=== PATIENT | female | born 1945 | race Caucasian/White ===

== ENCOUNTER 2018-03-28 06:52 | Day surgery (SDC) | payer MEDICARE, OTHER ==
[2018-03-28] VITALS (7 sets, daily range): BP systolic 101–131; BP diastolic 47–87
[~2018-03-28] VITALS: Ht 165.1 cm; Wt 105.7 kg
[~2018-03-28 06:52] MED LIST: ATOR10TA69 PO; GABA300S PO; LEVO100 PO; METO-408 PO; SERT100T12 PO; SODIUM CHLORIDE 0.9% 1000ML 1,000 ML IV ONE
[2018-03-28] MEDS ORDERED: IRON (08:54)
[2018-03-28] MEDS ORDERED: SERT100T12 PO (08:54)
[2018-03-28] MEDS ORDERED: MULT-1192 PO (08:54)
[2018-03-28] MEDS ORDERED: CHOL200074 PO (08:54)
[2018-03-28] MEDS ORDERED: CALC1TAB15 PO (08:54)
[2018-03-28] MEDS ORDERED: PROPOFOL 10 MG/ML 20ML VIAL IV ONE ×4 (10:55→10:56)
== END 2018-03-28 12:35 | disposition home or self-care (01) ==
LOC: ENDO 06:52 → DAH 06:52 → ENDO 12:35
PROVIDERS: ATTEND Internal Medicine Gastroenterology
DX: D12.3 Benign neoplasm of transverse colon (principal); D12.0 Benign neoplasm of cecum; D50.9 Iron deficiency anemia, unspecified; K29.50 Unspecified chronic gastritis without bleeding; K31.9 Disease of stomach and duodenum, unspecified; I10 Essential (primary) hypertension; E11.9 Type 2 diabetes mellitus without complications; I25.10 Atherosclerotic heart disease of native coronary artery without angina pectoris; E03.9 Hypothyroidism, unspecified; M19.90 Unspecified osteoarthritis, unspecified site; E78.5 Hyperlipidemia, unspecified; Z95.1 Presence of aortocoronary bypass graft; Z98.49 Cataract extraction status, unspecified eye; Z98.84 Bariatric surgery status; Z79.899 Other long term (current) drug therapy; Z87.891 Personal history of nicotine dependence; Z68.41 Body mass index [BMI] 40.0-44.9, adult
CPT/HCPCS: 43239; 45380; 45381; 45385; 82948 ×3; 88305; 93005; A4606; J2704 ×4; J7030; 45384

== ENCOUNTER 2018-03-28 19:41 | Inpatient (IN) | payer MEDICARE, OTHER ==
[~2018-03-28] VITALS: Ht 162.6 cm; Wt 107.7 kg
[~2018-03-28 19:41] MED LIST changes: +CALC1TAB15 PO; +CHOL200074 PO; +IRON; +MULT-1192 PO; -SODIUM CHLORIDE 0.9% 1000ML 1,000 ML IV ONE
[2018-03-28 20:39] LABS: BASOPHILS % (AUTO) 0.4 % (0.0-5.0); EOSINOPHILS % (AUTO) 0.7 % (0.0-8.0); HEMATOCRIT 27.9 % (36-48); LYMPHOCYTES % (AUTO) 10.2 % (21.0-51.0); MEAN CORPUSCULAR HEMOGLOBIN 24.2 pg (27.0-33.0); MEAN CORPUSCULAR HGB CONC 32.1 g/dL (32.0-36.0); MEAN CORPUSCULAR VOLUME 75.6 fL (79-99); MONOCYTES % (AUTO) 5.7 % (3.0-13.0); NUCLEATED RED BLOOD CELLS 0.1 % (0.0-0.19); PLATELET COUNT (AUTO) 98 K/uL (130-400); RED BLOOD CELL COUNT(AUTO) 3.69 MIL/uL (4.00-5.50); RED CELL DISTRIBUTION WIDTH 16.2 % (11.0-15.5); WHITE BLOOD COUNT (AUTO) 7.5 K/uL (4.8-10.8)
[2018-03-28 20:45] LABS: CREATININE 0.9 mg/dL (0.5-1.5); POTASSIUM 3.5 mmol/L (3.5-5.1)
[2018-03-28 20:49] LABS: BILIRUBIN,TOTAL 0.5 mg/dL (0.2-1.0); TOTAL PROTEIN, SERUM 6.6 g/dL (6.0-8.3)
[2018-03-28] MEDS ORDERED: SODIUM CHLORIDE 0.9% 1000ML 1,000 ML IV ONE (21:08)
[2018-03-28] MEDS ORDERED: POLYETHYLENE GLYCOL 3350 17 GM POWD.PACK ONE (22:07)
[2018-03-28 23:26] VITALS: BP 133/73
[2018-03-28] MEDS: SODIUM CHLORIDE 0.9% 1000ML 1,000 ML IV SCH (23:45)
[2018-03-28] MEDS ORDERED: ONDANSETRON HCL MDV 20ML 2 MG/ML VIAL IVP PRN (23:45)
[2018-03-28] MEDS ORDERED: PEG 3350/NA SULF,BICARB,CL/KCL 4000 ML SOLN PO SCH (23:45)
[2018-03-29] VITALS (19 sets, daily range): BP systolic 84–125; BP diastolic 50–80
[2018-03-29 01:14] LABS: BASOPHILS % (AUTO) 1.9 % (0.0-5.0); EOSINOPHILS % (AUTO) 0.6 % (0.0-8.0); HEMATOCRIT 26.5 % (36-48); LYMPHOCYTES % (AUTO) 14.7 % (21.0-51.0); MEAN CORPUSCULAR HEMOGLOBIN 23.8 pg (27.0-33.0); MEAN CORPUSCULAR HGB CONC 31.4 g/dL (32.0-36.0); MEAN CORPUSCULAR VOLUME 75.6 fL (79-99); MONOCYTES % (AUTO) 7.7 % (3.0-13.0); NEUTROPHILS % (AUTO) 75.1 % (40.0-77.0); PLATELET COUNT (AUTO) 234 K/uL (130-400); RED BLOOD CELL COUNT(AUTO) 3.51 MIL/uL (4.00-5.50); RED CELL DISTRIBUTION WIDTH 15.7 % (11.0-15.5); WHITE BLOOD COUNT (AUTO) 8.2 K/uL (4.8-10.8)
[2018-03-29 01:30] LABS: ALBUMIN 2.9 g/dL (3.5-5.0); BILIRUBIN,TOTAL 0.4 mg/dL (0.2-1.0); CREATININE 0.9 mg/dL (0.5-1.5); POTASSIUM 3.4 mmol/L (3.5-5.1); TOTAL PROTEIN, SERUM 5.9 g/dL (6.0-8.3)
[2018-03-29] MEDS: SODIUM CHLORIDE 0.9% 1000ML 1,000 ML IV SCH ×2 (06:36→21:16)
[2018-03-29] MEDS ORDERED: PROPOFOL 10 MG/ML 20ML VIAL IV ONE (07:05)
[2018-03-29] MEDS ORDERED: POTASSIUM CHLORIDE 10% ELIXIR 20 MEQ/15 ML UDCUP PO SCH (08:30)
[2018-03-29] MEDS: PANTOPRAZOLE SODIUM 40 MG TABLET.DR PO SCH (09:45)
[2018-03-30 00:10] VITALS: BP 140/72
[2018-03-30 04:04] VITALS: BP 116/89
[2018-03-30 04:32] LABS: HEMATOCRIT 21.6 % (36-48); MEAN CORPUSCULAR HEMOGLOBIN 24.4 pg (27.0-33.0); MEAN CORPUSCULAR HGB CONC 32.1 g/dL (32.0-36.0); MEAN CORPUSCULAR VOLUME 76.1 fL (79-99); NUCLEATED RED BLOOD CELLS 0.1 % (0.0-0.19); PLATELET COUNT (AUTO) 184 K/uL (130-400); RED BLOOD CELL COUNT(AUTO) 2.85 MIL/uL (4.00-5.50); WHITE BLOOD COUNT (AUTO) 4.5 K/uL (4.8-10.8)
[2018-03-30 04:47] LABS: CREATININE 0.9 mg/dL (0.5-1.5); POTASSIUM 3.6 mmol/L (3.5-5.1)
[2018-03-30 07:32] LABS: HEMATOCRIT 23.2 % (36-48)
[2018-03-30 08:00] VITALS: BP 136/71
[2018-03-30] MEDS ORDERED: FERROUS SULFATE 325 MG TABLET.DR PO SCH (09:00)
[2018-03-30] MEDS: PANTOPRAZOLE SODIUM 40 MG TABLET.DR PO SCH (09:03)
[2018-03-30] MEDS ORDERED: SODIUM CHLORIDE 0.9% 250 ML IV ONE (11:30)
[2018-03-30 11:56] VITALS: BP 128/85
[2018-03-30] MEDS ORDERED: FUROSEMIDE 10 MG/ML 2ML VIAL IV SCH (12:30)
[2018-03-30 16:00] VITALS: BP 137/60
[2018-03-30 16:48] LABS: HEMATOCRIT 26.4 % (36-48)
[2018-03-30] MEDS ORDERED: PANT40TA PO (17:05)
== END 2018-03-30 19:15 | disposition home or self-care (01) | DRG 394 ==
LOC: EDH 19:41 → EDHIP 22:00 → 3BH 22:32
PROVIDERS: ADMIT Hospitalist; ATTEND Hospitalist
PROC: 0W3P8ZZ Control Bleeding in Gastrointestinal Tract, Via Natural or Artificial Opening Endoscopic (ICD-10-PCS; principal; 2018-03-29)
PROC: 30233N1 Transfusion of Nonautologous Red Blood Cells into Peripheral Vein, Percutaneous Approach (ICD-10-PCS; 2018-03-30)
DX: K63.3 Ulcer of intestine (principal); D62 Acute posthemorrhagic anemia; K92.2 Gastrointestinal hemorrhage, unspecified; K62.5 Hemorrhage of anus and rectum; I95.9 Hypotension, unspecified; E03.9 Hypothyroidism, unspecified; E11.9 Type 2 diabetes mellitus without complications; E78.5 Hyperlipidemia, unspecified; I10 Essential (primary) hypertension; I25.10 Atherosclerotic heart disease of native coronary artery without angina pectoris; Z82.0 Family history of epilepsy and other diseases of the nervous system; Z86.010 Personal history of colon polyps; Z82.3 Family history of stroke; Z82.49 Family history of ischemic heart disease and other diseases of the circulatory system; Z82.5 Family history of asthma and other chronic lower respiratory diseases; Z83.3 Family history of diabetes mellitus; Z95.1 Presence of aortocoronary bypass graft; Z83.6 Family history of other diseases of the respiratory system
CPT/HCPCS: 36415; 36430; 45382; 80048; 80053; 82948; 84484; 85014; 85018; 85025; 85027; 86850; 86900; 86901; 86922; J1940; J2704; J7030; P9016

== ENCOUNTER → 2018-09-11 | Outpatient (CLI) | payer MEDICARE ==
[~2018-09-11] MED LIST changes: -ATOR10TA69 PO; -GABA300S PO; -LEVO100 PO; -METO-408 PO; +PANT40TA PO
== END | disposition home or self-care (01) ==
LOC: RAH 14:41
PROVIDERS: ATTEND Family Medicine
DX: Z12.31 Encounter for screening mammogram for malignant neoplasm of breast (principal)
CPT/HCPCS: 77067

== ENCOUNTER → 2019-03-15 | Outpatient (CLI) | payer MEDICARE ==
[~2019-03-15] MED LIST changes: +CALC-125 PO; -CALC1TAB15 PO
== END | disposition home or self-care (01) ==
LOC: RAH 12:03
PROVIDERS: ATTEND Physical Medicine & Rehabilitation
DX: M47.22 Other spondylosis with radiculopathy, cervical region (principal); M48.02 Spinal stenosis, cervical region; M25.78 Osteophyte, vertebrae; I65.21 Occlusion and stenosis of right carotid artery
CPT/HCPCS: 72052

== ENCOUNTER → 2019-04-03 | Outpatient (CLI) | payer MEDICARE | END | disposition home or self-care (01) | LOC: RAH 07:37 | PROVIDERS: ATTEND Physical Medicine & Rehabilitation | DX: M48.02 Spinal stenosis, cervical region (principal); M50.31 Other cervical disc degeneration, high cervical region; Z98.890 Other specified postprocedural states | CPT/HCPCS: 72141 ==

== ENCOUNTER 2019-05-23 05:57 | Day surgery (SDC) | payer MEDICARE ==
[2019-05-21 10:41] VITALS: BP 130/82
--- NOTE | 2019-05-22 10:15 | NUR ---
EKG INFORMED Deborah SAMUEL CRNA OF ABNORMAL EKG. OK TO PROCEED WITH PLANNED PROCEDURE.
[2019-05-23] VITALS (13 sets, daily range): BP systolic 135–162; BP diastolic 72–88
[~2019-05-23] VITALS: Ht 162.6 cm; Wt 109.4 kg
[~2019-05-23 05:57] MED LIST changes: +ATOR10TA69 PO; -CHOL200074 PO; +CLOP75TA32 PO; +COCO1000 PO; +GABA300S PO; +LEVO112T4 PO; +METO-408 PO; -MULT-1192 PO; +MULT1CAP32 PO; -SERT100T12 PO
[2019-05-23] MEDS ORDERED: LACTATED RINGERS 1000ML 0 ML IV ONE (06:47)
[2019-05-23] MEDS ORDERED: SODIUM CHLORIDE 0.9% 1000ML 1,000 ML IV ONE (06:50)
[2019-05-23] MEDS: CEFAZOLIN SODIUM 1 GM VIAL IVP SCH ×2 (07:00→07:30)
[2019-05-23] MEDS ORDERED: DEXAMETHASONE SOD PHOSPHATE 10MG/ML 1ML VIAL ONE (07:02)
[2019-05-23] MEDS ORDERED: PROPOFOL 10 MG/ML 20ML VIAL IV ONE (07:02)
[2019-05-23] MEDS ORDERED: ONDANSETRON HCL 4 MG/2 ML VIAL ONE (07:02)
[2019-05-23] MEDS ORDERED: FENTANYL CITRATE PF 50 MCG/1 ML 2ML VIAL ONE (07:02)
[2019-05-23] MEDS ORDERED: MIDAZOLAM HCL 1 MG/ML 2ML VIAL ONE (07:02)
[2019-05-23] MEDS ORDERED: LIDOCAINE HCL 1% 20 ML VIAL ONE (07:36)
[2019-05-23] MEDS ORDERED: KETOROLAC TROMETHAMINE 30MG/ML ONE (08:35)
[2019-05-23] MEDS ORDERED: MEPERIDINE-PF 25 MG/ML SYG ONE (08:36)
--- NOTE | 2019-05-23 09:19 | NUR ---
ASSESSMENT RECEIVED PT FROM PACU STAFF KOFFI MARIANO. DRSG TO RIGHT HAND DRY AND INTACT. NO BLEEDING, OOZING NOTED TO SITE. AT BEDSIDE.
--- NOTE | 2019-05-23 09:50 | NUR ---
DISCHARGE ORAL AND WRITTEN DISCHARGE INSTRUCTIONS GIVEN TO PT AND PTS ALONG WITH PRESCRIPTION AND STAPLE REMOVAL KIT. INSTRUCTED PT ON IMPORTANCE NOT RESUMING PLAVIX UNTIL AFTER STAPLE REMOVAL PER DR. VALLEJO. VERBALIZED UNDERSTANDING.
== END 2019-05-23 09:56 | disposition home or self-care (01) ==
LOC: DAH 05:57
PROVIDERS: ATTEND Neurological Surgery
DX: G56.01 Carpal tunnel syndrome, right upper limb (principal); E11.9 Type 2 diabetes mellitus without complications; F17.210 Nicotine dependence, cigarettes, uncomplicated; I25.10 Atherosclerotic heart disease of native coronary artery without angina pectoris; E66.01 Morbid (severe) obesity due to excess calories; Z79.899 Other long term (current) drug therapy; Z95.1 Presence of aortocoronary bypass graft; Z68.41 Body mass index [BMI] 40.0-44.9, adult; Z82.49 Family history of ischemic heart disease and other diseases of the circulatory system; Z82.3 Family history of stroke
CPT/HCPCS: 64721; 93005; A4215 ×2; A4216; A4221; A4222; A4223 ×2; A4663; J0690; J1100; J1885; J2175; J2250; J2405; J2704; J3010; J7030; J7120

== ENCOUNTER 2019-06-26 05:43 | Day surgery (SDC) | payer MEDICARE ==
[2019-06-22 09:15] VITALS: BP 138/80
--- NOTE | 2019-06-22 10:27 | NUR ---
ABNORMAL EKG ABNORMAL EKG REPORTED TO DR. FARLEY. NO FURTHER ORDERS GIVEN, MAY PROCEED. ALSO INFORMED DR. FARLEY THAT PT HAS NOT TAKEN HER PLAVIX SINCE 05/11/19, SHE HAD HER RT CTR DONE 05/23/2019. PER PT, DR. VALLEJO TOLD HER NOT TO RESUME HER PLAVIX RIGHT AWAY AFTER RT CTR SX. SHE HAS NOT TAKEN PLAVIX EVER SINCE. Addendum: 06/22/19 at 1048 by STEFANIA WHITTEN RN RN RE: PLAVIX, ALSO INFORMED DR. YONI MARROQUIN ELECTRICAL/INSTRUMENT TECHNICIAN. DR. YONI CUELLO IS AWARE.
[~2019-06-26] VITALS: Ht 163.8 cm; Wt 110.0 kg
[2019-06-26] VITALS (10 sets, daily range): BP systolic 133–153; BP diastolic 72–95
[2019-06-26] MEDS: CEFAZOLIN SODIUM 1 GM VIAL IVP SCH ×2 (05:00→08:17)
[~2019-06-26 05:43] MED LIST changes: +CELE-84 PO; +GABA-531 PO; -GABA300S PO; -IRON
[2019-06-26] MEDS ORDERED: SODIUM CHLORIDE 0.9% 1000ML 1,000 ML IV ONE (05:53)
[2019-06-26] MEDS ORDERED: MIDAZOLAM HCL 1 MG/ML 2ML VIAL ONE (07:11)
[2019-06-26] MEDS ORDERED: LIDOCAINE PF 2% 5ML ABBOJECT ONE (07:13)
[2019-06-26] MEDS ORDERED: FENTANYL CITRATE PF 50 MCG/1 ML 2ML VIAL ONE ×2 (07:13→08:50)
[2019-06-26] MEDS ORDERED: PROPOFOL 10 MG/ML 20ML VIAL IV ONE (07:14)
[2019-06-26] MEDS ORDERED: DEXAMETHASONE SOD PHOSPHATE 10MG/ML 1ML VIAL ONE ×2 (08:15→08:16)
[2019-06-26] MEDS ORDERED: ONDANSETRON HCL 4 MG/2 ML VIAL ONE ×2 (08:16→09:39)
[2019-06-26] MEDS ORDERED: KETOROLAC TROMETHAMINE 30MG/ML ONE (08:34)
--- NOTE | 2019-06-26 09:20 | NUR ---
PT ARRIVED FROM PACU VIA STRETCHER BY KOFFI MARIANO. PATIENT AAOX3, RESPIRATIONS UNLABORED, VITAL SIGNS STABLE. PATIENT DENIES ANY PAIN AT THIS TIME. DRESSING TO LEFT HAND IS DRY/INTACT, NO BLEEDING OR DRAINAGE NOTED.
--- NOTE | 2019-06-26 09:45 | NUR ---
PT C/O NAUSEA AND STATES THAT ANESTHESIA MAKES HER "DRY HEAVE AND FEEL NAUSEOUS". ADMINISTERED ZOFRAN IV, WILL CONTINUE TO MONITOR PATIENT.
--- NOTE | 2019-06-26 10:10 | NUR ---
PATIENT DISCHARGED FROM FACILITY VIA WHEELCHAIR BY KD OSMAN. PATIENT ASSISTED INTO PRIVATE VEHICLE DRIVEN BY HER FRIEND.
== END 2019-06-26 10:10 | disposition home or self-care (01) ==
LOC: DAH 05:43
PROVIDERS: ATTEND Neurological Surgery
DX: G56.02 Carpal tunnel syndrome, left upper limb (principal); I10 Essential (primary) hypertension; I25.10 Atherosclerotic heart disease of native coronary artery without angina pectoris; I48.91 Unspecified atrial fibrillation; E11.9 Type 2 diabetes mellitus without complications; Z98.890 Other specified postprocedural states; Z90.3 Acquired absence of stomach [part of]; Z95.5 Presence of coronary angioplasty implant and graft; Z79.899 Other long term (current) drug therapy; Z87.891 Personal history of nicotine dependence; Z82.49 Family history of ischemic heart disease and other diseases of the circulatory system; Z82.3 Family history of stroke; Z82.5 Family history of asthma and other chronic lower respiratory diseases
CPT/HCPCS: 64721; 82948 ×2; 93005; A4213; A4215 ×2; A4216; A4221; A4222; A4223 ×2; A4663; A6260; J0690; J1100 ×2; J1885; J2250; J2405 ×2; J2704; J3010 ×2; J7030; J2001

== ENCOUNTER → 2019-09-06 | Outpatient (CLI) | payer MEDICARE | END | disposition home or self-care (01) | LOC: RAH 09-05 14:45 | PROVIDERS: ATTEND Physical Medicine & Rehabilitation | DX: I67.82 Cerebral ischemia (principal); R26.89 Other abnormalities of gait and mobility | CPT/HCPCS: 70551 ==

== ENCOUNTER → 2019-11-07 | Outpatient (CLI) | payer MEDICARE | END | disposition home or self-care (01) | LOC: RAH 12:11 | PROVIDERS: ATTEND Physical Medicine & Rehabilitation | DX: M47.22 Other spondylosis with radiculopathy, cervical region (principal); M51.16 Intervertebral disc disorders with radiculopathy, lumbar region; M41.86 Other forms of scoliosis, lumbar region; M17.0 Bilateral primary osteoarthritis of knee; M85.88 Other specified disorders of bone density and structure, other site | CPT/HCPCS: 72052; 72110; 73562 ==

== ENCOUNTER → 2020-01-16 | Outpatient (CLI) | payer MEDICARE | END | disposition home or self-care (01) | LOC: RAH 08:28 | PROVIDERS: ATTEND Physical Medicine & Rehabilitation | DX: M47.26 Other spondylosis with radiculopathy, lumbar region (principal); M51.17 Intervertebral disc disorders with radiculopathy, lumbosacral region; M48.061 Spinal stenosis, lumbar region without neurogenic claudication | CPT/HCPCS: 72148 ==

== ENCOUNTER 2020-08-07 13:29 | Emergency (ER) | payer MEDICARE ==
[2020-08-07 14:14] LABS: BASOPHILS % (AUTO) 0.4 % (0.0-5.0); EOSINOPHILS % (AUTO) 1.9 % (0.0-8.0); HEMATOCRIT 38.3 % (36-48); LYMPHOCYTES % (AUTO) 21.1 % (21.0-51.0); MEAN CORPUSCULAR HEMOGLOBIN 27.2 pg (27.0-33.0); MEAN CORPUSCULAR HGB CONC 32.6 g/dL (32.0-36.0); MEAN CORPUSCULAR VOLUME 83.4 fL (79-99); MONOCYTES % (AUTO) 9.7 % (3.0-13.0); NEUTROPHILS % (AUTO) 66.5 % (40.0-77.0); PLATELET COUNT (AUTO) 170 K/uL (130-400); RED BLOOD CELL COUNT(AUTO) 4.59 MIL/uL (4.00-5.50); RED CELL DISTRIBUTION WIDTH 12.9 % (11.0-15.5); WHITE BLOOD COUNT (AUTO) 5.2 K/uL (4.8-10.8)
[2020-08-07] MEDS ORDERED: LORAZEPAM 0.5 MG TABLET ONE (14:28)
[2020-08-07 14:35] LABS: ALBUMIN 3.8 g/dL (3.5-5.0); BILIRUBIN,TOTAL 0.6 mg/dL (0.2-1.0); POTASSIUM 4.6 mmol/L (3.5-5.1); TOTAL PROTEIN, SERUM 7.5 g/dL (6.0-8.3)
[2020-08-07 14:46] LABS: APPEARANCE,URINE Cloudy (CLEAR); BILIRUBIN,URINE Negative (NEGATIVE); COLOR,URINE Yellow (YELLOW); GLUCOSE, URINE (UA) Negative (NEGATIVE); KETONES,URINE Negative (NEGATIVE); LEUKOCYTE ESTERASE ,URINE Large (NEGATIVE); NITRATE,URINE Positive (NEGATIVE); OCCULT BLOOD,URINE Moderate (NEGATIVE); PROTEIN,URINE Trace mg/dL (NEGATIVE); UROBILINOGEN,URINE 0.2 mg/dL (0.2-1.0)
[2020-08-07 14:55] LABS: BACTERIA,URINE Moderate /HPF (None Seen)
[2020-08-07 14:56] LABS: MUCUS,URINE Few LPF (None Seen); SQUAMOUS EPITHELIAL CELL,UR 0-2 /HPF (0-2)
== END 2020-08-07 15:08 | disposition home or self-care (01) ==
LOC: EDH 13:29
DX: S16.1XXA Strain of muscle, fascia and tendon at neck level, initial encounter (principal); S20.219A Contusion of unspecified front wall of thorax, initial encounter; F41.9 Anxiety disorder, unspecified; I25.10 Atherosclerotic heart disease of native coronary artery without angina pectoris; E78.5 Hyperlipidemia, unspecified; I10 Essential (primary) hypertension; E11.9 Type 2 diabetes mellitus without complications; Z87.891 Personal history of nicotine dependence; V89.2XXA Person injured in unspecified motor-vehicle accident, traffic, initial encounter; Y93.89 Activity, other specified; Y92.488 Other paved roadways as the place of occurrence of the external cause; Y99.8 Other external cause status
CPT/HCPCS: 36415; 70450; 71045; 72125; 80053; 81001; 85025; 87077; 87088; 87186

== ENCOUNTER → 2020-09-26 | Outpatient (CLI) | payer MEDICARE | END | disposition home or self-care (01) | LOC: RAH 10:46 | PROVIDERS: ATTEND Family Medicine | DX: Z12.31 Encounter for screening mammogram for malignant neoplasm of breast (principal) | CPT/HCPCS: 77067 ==

== ENCOUNTER → 2021-12-24 | Outpatient (CLI) | payer OTHER | END | disposition home or self-care (01) | LOC: RAH 10:53 | PROVIDERS: ATTEND Physical Medicine & Rehabilitation | DX: M50.020 Cervical disc disorder with myelopathy, mid-cervical region, unspecified level (principal); M48.02 Spinal stenosis, cervical region; M50.120 Mid-cervical disc disorder, unspecified level | CPT/HCPCS: 72141 ==

== ENCOUNTER → 2022-02-03 | Outpatient (CLI) | payer OTHER | END | disposition home or self-care (01) | LOC: RAH 08:45 | PROVIDERS: ATTEND Family Medicine | DX: Z12.31 Encounter for screening mammogram for malignant neoplasm of breast (principal) | CPT/HCPCS: 77067 ==

== ENCOUNTER → 2022-07-14 | Outpatient (CLI) | payer OTHER | END | disposition home or self-care (01) | LOC: RAH 11:48 | PROVIDERS: ATTEND Family Medicine | DX: M79.604 Pain in right leg (principal) | CPT/HCPCS: 93926; 93971 ==

== ENCOUNTER → 2023-04-20 | Outpatient (CLI) | payer OTHER ==
[~2023-04-20] MED LIST changes: +CELE-125 PO; -CELE-84 PO
== END | disposition home or self-care (01) ==
LOC: RAH 02-04 11:40
PROVIDERS: ATTEND Family Medicine
DX: Z12.31 Encounter for screening mammogram for malignant neoplasm of breast (principal)
CPT/HCPCS: 77067

== ENCOUNTER 2023-08-03 06:01 | Observation (INO) | payer MEDICARE, OTHER ==
[2023-08-01 10:22] LABS: BASOPHILS # (AUTO) 0.03 K/uL (0.00-0.20); BASOPHILS % (AUTO) 0.6 % (0.0-5.0); EOSINOPHILS # (AUTO) 0.12 K/uL (0.00-0.70); EOSINOPHILS % (AUTO) 2.5 % (0.0-8.0); IMMATURE GRANULOCYTE ABSOLUTE 0.01 K/uL (0-1); LYMPHOCYTES % (AUTO) 21.1 % (21.0-51.0); MEAN CORPUSCULAR HEMOGLOBIN 24.5 pg (27.0-33.0); MEAN CORPUSCULAR HGB CONC 30.8 g/dL (32.0-36.0); MEAN CORPUSCULAR VOLUME 79.6 fL (79-99); MONOCYTES # (AUTO) 0.5 K/uL (0.1-1.0); MONOCYTES % (AUTO) 9.9 % (3.0-13.0); NEUTROPHILS # (AUTO) 3.1 K/uL (1.8-7.7); NEUTROPHILS % (AUTO) 65.7 % (40.0-77.0); PLATELET COUNT (AUTO) 244 K/uL (130-400); RED BLOOD CELL COUNT(AUTO) 4.65 MIL/uL (4.00-5.50); RED CELL DISTRIBUTION WIDTH 14.6 % (11.0-15.5); WHITE BLOOD COUNT (AUTO) 4.7 K/uL (4.8-10.8)
[2023-08-01 10:32] LABS: ALBUMIN 3.5 g/dL (3.5-5.0); POTASSIUM 3.9 mmol/L (3.5-5.1)
[2023-08-01 10:50] LABS: INR 1.01 (0.85-1.15); PROTHROMBIN TIME 11.7 SEC (9.6-11.6)
[2023-08-01 10:51] LABS: PARTIAL THROMBOPLASTIN TIME 31.9 SEC (26.3-35.5)
[2023-08-01 11:33] VITALS: BP 136/60; PULSE 87; RESP 17
[2023-08-01 13:16] LABS: APPEARANCE,URINE CLOUDY (CLEAR); BILIRUBIN,URINE NEGATIVE (NEGATIVE); COLOR,URINE YELLOW (YELLOW); GLUCOSE, URINE (UA) NEGATIVE (NEGATIVE); KETONES,URINE NEGATIVE (NEGATIVE); LEUKOCYTE ESTERASE ,URINE 500 Leu/uL (NEGATIVE); NITRATE,URINE 1+ (NEGATIVE); OCCULT BLOOD,URINE NEGATIVE (NEGATIVE); PROTEIN,URINE 30 mg/dL (NEGATIVE); UROBILINOGEN,URINE 0.2 mg/dL (0.2-1.0)
[2023-08-01 13:19] LABS: ADD UA MICROSCOPIC YES
[2023-08-01 13:21] LABS: MUCUS,URINE FEW LPF (None Seen); SQUAMOUS EPITHELIAL CELL,UR MOD /HPF (0-2); WBC,URINE 51-100 /HPF (0-1)
[~2023-08-03] VITALS: Ht 162.6 cm; Wt 91.3 kg
[2023-08-03] VITALS (31 sets, daily range): BP systolic 114–178; BP diastolic 52–98; PULSE 62–100; RESP 14–20; O2SAT 97–98
[~2023-08-03 06:01] MED LIST changes: -CALC-125 PO; -COCO1000 PO; -GABA-531 PO; +OTEZLA PO; +VITAMIN D3 PO
[2023-08-03] MEDS ORDERED: LIDOCAINE PF 100MG/5ML (2%) SYRINGE 5ML ONE (06:54)
[2023-08-03] MEDS ORDERED: MIDAZOLAM HCL 1 MG/ML 2ML VIAL ONE (06:54)
[2023-08-03] MEDS ORDERED: FENTANYL CITRATE PF 50 MCG/1 ML 2ML VIAL ONE ×2 (06:54→08:00)
[2023-08-03] MEDS ORDERED: PROPOFOL 10 MG/ML 20ML VIAL IV ONE (06:54)
[2023-08-03] MEDS ORDERED: DEXAMETHASONE SOD PHOSPHATE 10MG/ML 1ML VIAL ONE (06:57)
[2023-08-03] MEDS ORDERED: ONDANSETRON 4MG INJ ONE (06:57)
[2023-08-03] MEDS ORDERED: KETOROLAC 30MG VIAL (30MG/ML) ONE (07:01)
[2023-08-03] MEDS ORDERED: TRANEXAMIC ACID 1000MG/10ML ONE (07:01)
[2023-08-03] MEDS: 0.9%NACL 1000ML 1,000 ML IV ONE (07:02)
[2023-08-03] MEDS: CEFAZOLIN SODIUM 2 GM VIAL ONE (07:02)
[2023-08-03] MEDS ORDERED: ROPIVACAINE 0.5% 5MG/ML 30ML ONE (07:02)
[2023-08-03] MEDS: SCOPOLAMINE HYDROBROMIDE 1 EACH ADH..PATCH TD ONE (07:02)
[2023-08-03] MEDS ORDERED: ROCURONIUM BROMIDE 10MG/1ML 5ML VL ONE (07:15)
[2023-08-03] MEDS ORDERED: ACET-2079 PO (07:24)
[2023-08-03] MEDS: CEFAZOLIN SODIUM 2 GM VIAL IVPB ONE (07:45)
[2023-08-03] MEDS: TRANEXAMIC ACID 1000MG/10ML IV ONE (07:51)
[2023-08-03] MEDS ORDERED: PHENYLEPHRINE HCL 10 MG/ML 1ML VIAL IV ONE (08:50)
[2023-08-03] MEDS ORDERED: GLYCOPYRROLATE 0.2 MG/ML 5 ML VIAL ONE (09:24)
[2023-08-03] MEDS ORDERED: NEOSTIGMINE METHYLSULFATE 1MG/ML IV ONE (09:24)
[2023-08-03] MEDS ORDERED: POTASSIUM CHLORIDE 10% ELIXIR 20 MEQ/15 ML UDCUP PO PRN (10:00)
[2023-08-03] MEDS ORDERED: POTASSIUM CHLORIDE 20MEQ/100ML 100 ML IV PRN (10:00)
[2023-08-03] MEDS ORDERED: CALCIUM CARB 500MG PO PRN (10:00)
[2023-08-03] MEDS ORDERED: FERROUS FUMARATE 324 MG TABLET PO PRN (10:00)
[2023-08-03] MEDS ORDERED: KCL 20 MEQ ERTAB PO PRN (10:00)
[2023-08-03] MEDS ORDERED: TRAMADOL HCL 50 MG TABLET PO PRN (10:00)
[2023-08-03] MEDS ORDERED: ONDANSETRON 4MG INJ IVP PRN (10:00)
[2023-08-03] MEDS: KETOROLAC 15MG/ML VIAL (15MG/ML) ONE (10:16)
[2023-08-03] MEDS: KETOROLAC 15MG/ML VIAL (15MG/ML) IV SCH (10:16)
[2023-08-03] MEDS: HYDROCODONE/ACETAMINOPHEN 5/325 MG TAB ONE (11:27)
[2023-08-03] MEDS: GABAPENTIN 100 MG CAPSULE PO SCH (14:00)
[2023-08-03] MEDS: 0.9%NACL 1000ML 1,000 ML IV SCH (14:16)
[2023-08-03] MEDS: CEFAZOLIN SODIUM 2 GM VIAL IVPB SCH (14:19)
[2023-08-03] MEDS: OTEZLA PO SCH (19:17)
[2023-08-03] MEDS: DOCUSATE SODIUM 100 MG CAP PO SCH (19:18)
[2023-08-03] MEDS: HALOPERIDOL INJ 5 MG/ML VIAL IM STA (20:38)
[2023-08-03] MEDS: HALOPERIDOL INJ 5 MG/ML VIAL ONE (20:38)
[2023-08-03] MEDS: LORAZEPAM 2 MG/ML 1 ML VIAL IM STA (20:58)
[2023-08-04] MEDS: ATORVASTATIN 10 MG TABLET PO SCH (08:20)
[2023-08-04] MEDS: LEVOTHYROXINE 112 MCG TABLET PO SCH (08:20)
[2023-08-04] MEDS: PANTOPRAZOLE 40 MG TAB DR PO SCH (08:20)
[2023-08-04] MEDS: ASPIRIN 325MG EC TAB PO SCH (08:20)
[2023-08-04] MEDS: MULTIVITAMIN TABLET PO SCH (08:20)
[2023-08-04] MEDS: POLYETHYLENE GLYCOL 3350 17 GM POWD.PACK PO SCH (08:21)
[2023-08-04] MEDS: METOPROLOL SUCCINATE 25 MG TAB.SR.24H PO SCH (08:21)
[2023-08-04] MEDS: VITAMIN D3 PO SCH (08:26)
[2023-08-04 08:30] VITALS: O2SAT 98
[2023-08-04] MEDS ORDERED: PANTOPRAZOLE 40 MG TAB DR PO SCH (09:00)
[2023-08-04] MEDS: CEFTRIAXONE 2GM VIAL IVPB ONE (09:26)
[2023-08-04 09:38] LABS: BASOPHILS # (AUTO) 0.01 K/uL (0.00-0.20); BASOPHILS % (AUTO) 0.1 % (0.0-5.0); HEMATOCRIT 28.3 % (36-48); IMMATURE GRANULOCYTE ABSOLUTE 0.04 K/uL (0-1); LYMPHOCYTES # (AUTO) 0.9 K/uL (1.0-4.8); LYMPHOCYTES % (AUTO) 11.8 % (21.0-51.0); MEAN CORPUSCULAR HEMOGLOBIN 24.1 pg (27.0-33.0); MEAN CORPUSCULAR HGB CONC 32.2 g/dL (32.0-36.0); MEAN CORPUSCULAR VOLUME 74.9 fL (79-99); MONOCYTES # (AUTO) 0.8 K/uL (0.1-1.0); MONOCYTES % (AUTO) 11.5 % (3.0-13.0); NEUTROPHILS # (AUTO) 5.5 K/uL (1.8-7.7); PLATELET COUNT (AUTO) 185 K/uL (130-400); RED BLOOD CELL COUNT(AUTO) 3.78 MIL/uL (4.00-5.50); RED CELL DISTRIBUTION WIDTH 14.5 % (11.0-15.5); WHITE BLOOD COUNT (AUTO) 7.2 K/uL (4.8-10.8)
[2023-08-04 09:41] VITALS: BP 148/70; PULSE 90; RESP 18
[2023-08-04 09:47] LABS: CREATININE 1.1 mg/dL (0.5-1.5); POTASSIUM 3.1 mmol/L (3.5-5.1)
[2023-08-04 09:52] LABS: ALBUMIN 3.1 g/dL (3.5-5.0); BILIRUBIN,TOTAL 0.7 mg/dL (0.2-1.0); TOTAL PROTEIN, SERUM 6.1 g/dL (6.0-8.3)
[2023-08-04] MEDS ORDERED: KETOROLAC 15MG/ML VIAL (15MG/ML) IV PRN (10:00)
[2023-08-04] MEDS: HYDROCODONE/ACETAMINOPHEN 5/325 MG TAB PO PRN (11:13)
[2023-08-04 12:00] VITALS: BP 133/73; PULSE 80; RESP 18
[2023-08-04] MEDS ORDERED: HALOPERIDOL INJ 5 MG/ML VIAL IM PRN (14:00)
[2023-08-04] MEDS: HALOPERIDOL INJ 5 MG/ML VIAL ONE (14:03)
[2023-08-04] MEDS: HALOPERIDOL INJ 5 MG/ML VIAL IM PRN (14:03)
[2023-08-04 16:00] VITALS: BP 138/71; PULSE 91; RESP 20
[2023-08-04 20:00] VITALS: BP 144/63; PULSE 84; RESP 20; O2SAT 97
[2023-08-05] VITALS: BP 159/68; PULSE 90; RESP 18
[2023-08-05 04:00] VITALS: BP 152/85; PULSE 120; RESP 20
[2023-08-05] MEDS: CYCLOBENZAPRINE HCL 10 MG TABLET PO PRN (05:34)
[2023-08-05] MEDS: ACETAMINOPHEN 325 MG TAB PO PRN (05:35)
[2023-08-05 08:00] VITALS: BP 152/76; PULSE 96; RESP 18; O2SAT 97
[2023-08-05] MEDS: CEFTRIAXONE 1G VIAL IVPB SCH (10:13)
[2023-08-05 12:00] VITALS: BP 138/76; PULSE 97; RESP 18
[2023-08-05 16:00] VITALS: BP 129/66; PULSE 102; RESP 18
[2023-08-05] MEDS ORDERED: ACET-2247 PO (18:46)
[2023-08-05] MEDS ORDERED: CEFD300C3 PO (18:46)
[2023-08-06] MEDS ORDERED: BISACODYL 10 MG SUPP.RECT RC PRN (10:00)
== END 2023-08-05 19:30 ==
LOC: DAH 06:01 → DAHIP 06:02 → 4BH 13:10 → EDSTATUS 15:00
PROVIDERS: ADMIT Student in an Organized Health Care Education/Training Program; ATTEND Student in an Organized Health Care Education/Training Program
DX: M17.12 Unilateral primary osteoarthritis, left knee (principal); R41.0 Disorientation, unspecified; M85.80 Other specified disorders of bone density and structure, unspecified site; E11.9 Type 2 diabetes mellitus without complications; I25.10 Atherosclerotic heart disease of native coronary artery without angina pectoris; J44.9 Chronic obstructive pulmonary disease, unspecified; N39.0 Urinary tract infection, site not specified; M54.12 Radiculopathy, cervical region; I10 Essential (primary) hypertension; E78.5 Hyperlipidemia, unspecified; K21.9 Gastro-esophageal reflux disease without esophagitis; Z87.891 Personal history of nicotine dependence; Z79.899 Other long term (current) drug therapy
CPT/HCPCS: 82040; 80048; 85025 ×2; 85610; 85730; 87088; 84134; 86140; 81001; 36415 ×2; 87641; 96376 ×2; 96372 ×2; 96365; 96375; 64447; 27447; 82948 ×9; 73560; 97161; 97116 ×2; 96366; 83735; 80053; 97530 ×2; G0378 ×53; A4223 ×2; A4663; A4215 ×2; J3010 ×2; J3490 ×4; J1100; J7030; J2001; J1630 ×3; J2250; J2704; J2405; J1885 ×3; J2710; J2795; J2371; J0690 ×3; C1713 ×2; G0168; C1776 ×2; A4649 ×3; A6255; A5120; A4222; A4221; J0696 ×2

== ENCOUNTER → 2024-04-23 | Outpatient (CLI) | payer OTHER ==
[~2024-04-23] MED LIST changes: +ACET-2247 PO; +CEFD300C3 PO
== END | disposition home or self-care (01) ==
LOC: RAH 11:48
PROVIDERS: ATTEND Family Medicine
DX: Z12.31 Encounter for screening mammogram for malignant neoplasm of breast (principal); R92.323 Mammographic fibroglandular density, bilateral breasts
CPT/HCPCS: 77067

== ENCOUNTER 2024-11-14 12:09 | Emergency (ER) | payer OTHER ==
[~2024-11-14] VITALS: Ht 162.6 cm; Wt 78.9 kg
[2024-11-14 12:30] VITALS: BP 100/54; PULSE 60; RESP 18; TEMP 98.1; O2SAT 96
--- NOTE | 2024-11-14 12:30 | NUR ---
patient states she tripped and fell over a rug yesterday, she broke her fall with her hand injuring also her shoulder. patient denies hitting her head, and therfore had zero LOC. rashid is awake alert and oriented, has multiple bruises to left arm, but takes blood thinners. patient with no noted bruises to shoulder, mils swelling noted
--- NOTE | 2024-11-14 12:33 | ERN ---
General Chief Complaint: Shoulder Injury/Pain Stated Complaint: LT SHOULDER PAIN Time Seen by MD: 12:12 Source: patient History of Present Illness Initial Comments Patient Is a 79-year-old female coming in after she had a fall. Per patient she was evaluated by PCP sent over for further evaluation. Patient was getting an outpatient x-ray and was sent over due to abnormalities found an x-ray. Patient is complaining of left shoulder pain. Allergies: Coded Allergies: No Known Drug Allergies (Verified Allergy, Unknown, 06/26/14) Home Meds Active Scripts Cefdinir (Cefdinir) 300 Mg Capsule, 300 MG PO BID for uti for 5 Days, #10 CAP 0 Refills Prov:CAROLINA COLEMAN MD 08/05/23 Acetaminophen (Tylenol) 325 Mg Tablet, 650 MG PO Q6H PRN for PAIN, #90 TAB 0 Refills Prov:CAROLINA COLEMAN MD 08/05/23 Pantoprazole Sodium (Protonix) 40 Mg Tablet.dr, 40 MG PO DAILY for 30 Days, #30 TAB 0 Refills Prov:JACINTO WHITE MD 03/30/18 Reported Medications [Otezla] No Conflict Check, 1 TAB PO BID 08/01/23 [Vitamin D3] No Conflict Check, 1 TAB PO AM 08/01/23 Celecoxib (Celecoxib) 200 Mg Capsule, 200 MG PO DAILY, CAP 08/01/23 Metoprolol Succinate (Metoprolol Succinate) 25 Mg Tab.er.24h, 25 MG PO AM, TAB 06/22/19 Multivitamin (Multivitamins) 1 Each Capsule, 1 EACH PO AM, CAP 05/21/19 Atorvastatin Calcium (Atorvastatin Calcium) 10 Mg Tablet, 10 MG PO AM, TAB 05/21/19 Levothyroxine Sodium (Synthroid) 112 Mcg Tablet, 112 MCG PO DAILY, TAB 05/21/19 Clopidogrel Bisulfate (Clopidogrel) 75 Mg Tablet, 75 MG PO DAILY, TAB 05/21/19 Past Medical History Past Medical History: Diabetes-Type II Past Surgical History: CABG Surgical History Other: NECK SX, BACK SX, BILAT HAND SX ROS Dictation CONSTITUTIONAL: No chills, no fever, no weakness, no diaphoresis, no malaise. HEAD/FACE: No signs of trauma. EENT: No eye pain, no blurred vision, no tearing, no double vision, no ear pain, no ear discharge, no nose pain, no nasal congestion, no throat pain, no throat swelling, no mouth pain. RESPIRATORY: No cough, no orthopnea, no SOB, no stridor, no wheezing. CARDIOVASCULAR: No chest pain, no edema, no palpitations, no syncope. GASTROINTESTINAL/ABDOMINAL: No abdominal pain, no constipation, no diarrhea, no nausea, no vomiting. GENITOURINARY: No abnormal discharge, no dysuria, no frequent urination, no hematuria. No complaints of pain in the genitals. MUSCULOSKELETAL: No back pain, no gout, joint pain, joint swelling, no muscle pain, no muscle stiffness, no neck pain. INTEGUMENTARY: No change in color, no change in hair/nails, no dryness, no lesion, no lumps, no rash. NEUROLOGICAL/PSYCH: No anxiety, not depressed, no emotional problem, no headache, no numbness, no pre-existing deficit, no history of seizures, no tremors, no weakness. HEMATOLOGIC/LYMPHATIC: Not anemic, no history of blood clots, no apparent bleeding, no bruising, glands not swollen. All Systems Negative, Except as Noted. Physical Exam Physical Exam Dictation VITAL SIGNS: Reviewed. GENERAL APPEARANCE: Alert, oriented x3, no acute distress, obese. HEAD AND FACE: Non-traumatic. EYES: PERRL, pink conjunctivas, eyelid no trauma, anterior chamber clear. EARS: Pinnas intact and no signs of trauma or erythema. Ear canals clear and no discharge. TMs no erythema. NOSE: No discharge, no bleeding. OROPHARYNX: Mouth normal, teeth no caries, tongue pink. Pharynx clear, no erythema. Tonsils no exudates, no abscesses noted. Mucous membrane moist. NECK: Supple, non-tender, no thyromegaly, no masses, no JVD, no bruits. BREAST: Deferred. CHEST: No tenderness, no crepitus, no paradoxical movement, no retractions. LUNGS: Clear, well-ventilated, symmetric, no rales, no wheezing, no rhonchi, no stridor, good breath sounds bilaterally. HEART: Regular rate, regular rhythm, no murmur, no gallops. VASCULAR: No peripheral edema. ABDOMEN: Soft, positive bowel sounds, nondistended, no guarding, nontender, no rebound, no masses no hepatomegaly, no splenomegaly, no Grya's sign, no hernias. RECTAL: Deferred. GENITAL: Deferred. NEUROLOGICAL: Normal speech, gross motor function intact, gross sensory function intact. MUSCULOSKELETAL: Neck nontender, full range of motion, back nontender, full range of motion. EXTREMITIES: Nontender, full range of motion. Left shoulder pain on palpation SKIN: Color pink, dry, no turgor, no rash, no lacerations, no abrasions, no contusions. LYMPHATICS: Deferred. Results Laboratory and Microbiology Labs Reviewed?: Yes EKG/XRAY/US/CT/MRI X-RAY Comment [facility] [address] [address] IMAGING REPORT Signed PATIENT: NIKKI CASTILLO MR#: [id number] : 1945 SEX: F AGE: 79 LOCATION: [facility] ORDER 1149 STATUS: REG CLI REPORT#: [id number] SERVICE 1148 REASON: LEFT ARM PAIN, LEFT SHOULDER PAIN, S/P FALL ORDERING PHYSICIAN: CAROLINA THURMAN MD PROCEDURE: HUM 2V LT - HUMERUS 2+VWS LT HUMERUS 2+VWS LT HISTORY: Left shoulder pain COMPARISON: None TECHNIQUE: 2 images of left humerus were obtained. FINDINGS: Transverse fracture with minimal displacement seen involving the left humeral neck with small adjacent fracture fragment. No dislocation is seen. Bony osteopenia is seen. Degenerative changes are seen. IMPRESSION: 1. Findings as described above. DICTATED BY: PAWAN BEAUCHAMP MD DATE: 11/14/24 1209 ELECTRONICALLY SIGNED BY: PAWAN BEAUCHAMP MD DATE: 11/14/24 1212 [address] [id number] IMAGING REPORT Signed PATIENT: NIKKI CASTILLO MR#: [id number] : 1945 SEX: F AGE: 79 LOCATION: [facility] ORDER 113 STATUS: REG CLI REPORT#: [id number] SERVICE 113 REASON: LEFT ARM PAIN, LEFT SHOULDER AIN, S/P FALL ORDERING PHYSICIAN: CAROLINA THURMAN MD PROCEDURE: SHOL 2V LT - SHOULDER COMP 2+VWS LT SHOULDER COMP 2+VWS LT HISTORY: Left arm pain COMPARISON: None TECHNIQUE: 2 images of left shoulder were obtained. FINDINGS: Transverse fracture with minimal displacement is seen involving the left humeral neck. Small adjacent bone fragment is seen. No dislocation is seen. Bony osteopenia is seen Degenerative changes are seen. IMPRESSION: 1. Findings as described above. DICTATED BY: PAWAN BEAUCHAMP MD DATE: 11/14/24 1148 ELECTRONICALLY SIGNED BY: PAWAN BEAUCHAMP MD DATE: 11/14/24 1152 [facility] MDM: Differential diagnosis: Transverse humeral neck fracture, Rationale: Tests considered and ordered secondary to shared decision making include: Previous outside records reviewed: Old ER visits. Risk of complication and/or morbidity or mortality of patient management: None Patient is a 79-year-old female coming in for further evaluation. Per patient she fell down was complaining of left shoulder pain was evaluated by PCP sent over for outpatient x-ray. X-ray disclose the humeral neck fracture. Sling was placed patient will be discharged in stable condition with a diagnosis of humeral neck fracture. I will be referring her to hemodialysis patient care specialist for ongoing evaluation as outpatient. ED Course Vital Signs Date Time Temp Pulse Resp B/P (MAP) Pulse Ox O2 Delivery O2 Flow Rate FiO2 11/14/24 12:12 98.1 66 18 102/59 99 Nasal Cannula 0 DX & DISP Disposition: Discharge Departure Impression: Primary Impression: Fracture of neck of humerus Condition: Stable Additional Instructions: FOLLOW-UP WITH PRIMARY CARE PROVIDER IN 1 TO 2 DAYS. TAKE MEDICATIONS DIRECTED HERE IN THE EMERGENCY ROOM. OKAY TO CONTINUE HOME MEDICATIONS UNLESS OTHERWISE DISCUSSED DURING YOUR VISIT IN THE EMERGENCY ROOM TODAY. RETURN TO YOUR NEAREST EMERGENCY ROOM IF SYMPTOMS WORSEN OR IF THERE IS NO IMPROVEMENT. CALL 911 IF YOU NEED IMMEDIATE ASSISTANCE. TAKE TYLENOL [id number] NEEDED AND IF NO CONTRAINDICATIONS ARE PRESENT. INCREASE ORAL HYDRATION. A WOUND CULTURE OR URINE CULTURE WAS ORDERED HERE IN THE EMERGENCY ROOM DEPARTMENT PLEASE FOLLOW-UP WITH PRIMARY CARE PROVIDER AND ADVISE THEM TO GET REPEAT PORTS FROM OUR FACILITY. IF YOU HAD ANY [place] WRAP/SPLINTS THAT WERE APPLIED HERE, PLEASE DO NOT REMOVE THEM UNTIL YOU SEE YOUR PRIMARY CARE OR SPECIALTY. Referrals: Referrals: CAROLINA THURMAN MD (PCP) CAROLINA COLEMAN MD Time of Disposition: 12:32 ARTURO DICKSON MD November 14, 2024 12:33
[2024-11-21] MEDS ORDERED: HYDR-4060 PO (14:38)
== END 2024-11-14 13:19 | disposition home or self-care (01) ==
LOC: EDH 12:09
DX: S42.292A Other displaced fracture of upper end of left humerus, initial encounter for closed fracture (principal); E11.9 Type 2 diabetes mellitus without complications; Z79.02 Long term (current) use of antithrombotics/antiplatelets; Z79.1 Long term (current) use of non-steroidal anti-inflammatories (NSAID); Z79.890 Hormone replacement therapy; Z79.899 Other long term (current) drug therapy; Z95.1 Presence of aortocoronary bypass graft; W18.39XA Other fall on same level, initial encounter; Y93.89 Activity, other specified; Y92.89 Other specified places as the place of occurrence of the external cause; Y99.8 Other external cause status
CPT/HCPCS: 73030; 73060; 99284

== ENCOUNTER → 2024-11-14 | Outpatient (CLI) | payer OTHER ==
--- NOTE | 2024-11-14 11:52 | HMCIMG ---
SHOULDER COMP 2+VWS LT HISTORY: Left arm pain COMPARISON: None TECHNIQUE: 2 images of left shoulder were obtained. FINDINGS: Transverse fracture with minimal displacement is seen involving the left humeral neck. Small adjacent bone fragment is seen. No dislocation is seen. Bony osteopenia is seen Degenerative changes are seen. IMPRESSION: 1. Findings as described above.
--- NOTE | 2024-11-14 12:12 | HMCIMG ---
HUMERUS 2+VWS LT HISTORY: Left shoulder pain COMPARISON: None TECHNIQUE: 2 images of left humerus were obtained. FINDINGS: Transverse fracture with minimal displacement seen involving the left humeral neck with small adjacent fracture fragment. No dislocation is seen. Bony osteopenia is seen. Degenerative changes are seen. IMPRESSION: 1. Findings as described above.
== END | disposition home or self-care (01) ==
LOC: RAH 11:21
PROVIDERS: ATTEND Family Medicine
DX: S42.212A Unspecified displaced fracture of surgical neck of left humerus, initial encounter for closed fracture (principal); M19.012 Primary osteoarthritis, left shoulder; M85.812 Other specified disorders of bone density and structure, left shoulder; M25.512 Pain in left shoulder; M79.602 Pain in left arm; X58.XXXA Exposure to other specified factors, initial encounter; Y93.89 Activity, other specified; Y92.89 Other specified places as the place of occurrence of the external cause; Y99.8 Other external cause status; Z91.81 History of falling
CPT/HCPCS: 73030; 73060

== ENCOUNTER 2024-11-20 11:34 | Emergency (ER) | payer OTHER ==
[~2024-11-20] VITALS: Ht 162.6 cm; Wt 77.1 kg
--- NOTE | 2024-11-20 11:45 | ERN ---
General Stated Complaint: SHOULDER PAIN; WAS HERE LAST WEEK FOR XRAYS Time Seen by MD: 11:39 History of Present Illness Initial Comments 79-year-old female who presents for left shoulder pain. She had a fall last week, she has a known humeral fracture. She reports she was only prescribed Tylenol and the pain in his to severe. No neurologic deficits. Allergies: Coded Allergies: No Known Drug Allergies (Verified Allergy, Unknown, 06/26/14) Home Meds Active Scripts Meloxicam (Meloxicam) 15 Mg Tablet, 15 MG PO DAILY PRN for PAIN for 20 Days, #20 TAB Prov:ITZ PARKER DO 11/20/24 Cefdinir (Cefdinir) 300 Mg Capsule, 300 MG PO BID for uti for 5 Days, #10 CAP 0 Refills Prov:CAROLINA COLEMAN MD 08/05/23 Acetaminophen (Tylenol) 325 Mg Tablet, 650 MG PO Q6H PRN for PAIN, #90 TAB 0 Refills Prov:CAROLINA COLEMAN MD 08/05/23 Pantoprazole Sodium (Protonix) 40 Mg Tablet.dr, 40 MG PO DAILY for 30 Days, #30 TAB 0 Refills Prov:JACINTO WHITE MD 03/30/18 Reported Medications [Otezla] No Conflict Check, 1 TAB PO BID 08/01/23 [Vitamin D3] No Conflict Check, 1 TAB PO AM 08/01/23 Celecoxib (Celecoxib) 200 Mg Capsule, 200 MG PO DAILY, CAP 08/01/23 Metoprolol Succinate (Metoprolol Succinate) 25 Mg Tab.er.24h, 25 MG PO AM, TAB 06/22/19 Multivitamin (Multivitamins) 1 Each Capsule, 1 EACH PO AM, CAP 05/21/19 Atorvastatin Calcium (Atorvastatin Calcium) 10 Mg Tablet, 10 MG PO AM, TAB 05/21/19 Levothyroxine Sodium (Synthroid) 112 Mcg Tablet, 112 MCG PO DAILY, TAB 05/21/19 Clopidogrel Bisulfate (Clopidogrel) 75 Mg Tablet, 75 MG PO DAILY, TAB 05/21/19 Discontinued Scripts Hydrocodone/Acetaminophen (Hydrocodon-Acetaminophen 5-325) 5 Mg-325 Mg Tablet, 1-2 TAB PO Q6HPRN PRN for pain for 10 Days, #40 TAB 0 Refills Prov:ITZ PARKER DO 11/21/24 Past Medical History Past Medical History: Diabetes-Type II Past Surgical History: CABG Surgical History Other: NECK SX, BACK SX, BILAT HAND SX ROS Dictation CONSTITUTIONAL: No chills, no fever, no weakness, no diaphoresis, no malaise. HEAD/FACE: No signs of trauma. EENT: No eye pain, no blurred vision, no tearing, no double vision, no ear pain, no ear discharge, no nose pain, no nasal congestion, no throat pain, no throat swelling, no mouth pain. RESPIRATORY: No cough, no orthopnea, no SOB, no stridor, no wheezing. CARDIOVASCULAR: No chest pain, no edema, no palpitations, no syncope. GASTROINTESTINAL/ABDOMINAL: No abdominal pain, no constipation, no diarrhea, no nausea, no vomiting. GENITOURINARY: No abnormal discharge, no dysuria, no frequent urination, no hematuria. No complaints of pain in the genitals. MUSCULOSKELETAL: Left shoulder pain INTEGUMENTARY: No change in color, no change in hair/nails, no dryness, no lesion, no lumps, no rash. NEUROLOGICAL/PSYCH: No anxiety, not depressed, no emotional problem, no headache, no numbness, no pre-existing deficit, no history of seizures, no tremors, no weakness. HEMATOLOGIC/LYMPHATIC: Not anemic, no history of blood clots, no apparent bleeding, no bruising, glands not swollen. All Systems Negative, Except as Noted. Physical Exam Physical Exam Dictation VITAL SIGNS: Reviewed. GENERAL APPEARANCE: Alert, oriented x3, no acute distress, obese. HEAD AND FACE: Non-traumatic. EYES: PERRL, pink conjunctivas, eyelid no trauma, anterior chamber clear. EARS: Pinnas intact and no signs of trauma or erythema. Ear canals clear and no discharge. TMs no erythema. NOSE: No discharge, no bleeding. OROPHARYNX: Mouth normal, teeth no caries, tongue pink. Pharynx clear, no erythema. Tonsils no exudates, no abscesses noted. Mucous membrane moist. NECK: Supple, non-tender, no thyromegaly, no masses, no JVD, no bruits. BREAST: Deferred. CHEST: No tenderness, no crepitus, no paradoxical movement, no retractions. LUNGS: Clear, well-ventilated, symmetric, no rales, no wheezing, no rhonchi, no stridor, good breath sounds bilaterally. HEART: Regular rate, regular rhythm, no murmur, no gallops. VASCULAR: No peripheral edema. ABDOMEN: Soft, positive bowel sounds, nondistended, no guarding, nontender, no rebound, no masses no hepatomegaly, no splenomegaly, no Gray's sign, no hernias. RECTAL: Deferred. GENITAL: Deferred. NEUROLOGICAL: Normal speech, gross motor function intact, gross sensory function intact. MUSCULOSKELETAL: Left shoulder swollen and tender EXTREMITIES: Nontender, full range of motion. SKIN: Color pink, dry, no turgor, no rash, no lacerations, no abrasions, no contusions. LYMPHATICS: Deferred. Results Laboratory and Microbiology Lab and Micro Result Laboratory Tests Test 11/20/24 11:56 White Blood Count 5.6 K/uL (4.8-10.8) Red Blood Count 4.41 MIL/uL (4.00-5.50) Hemoglobin 11.3 g/dL (12.0-16.0) L Hematocrit 36.2 % (36-48) Mean Corpuscular Volume 82.1 fL (79-99) Mean Corpuscular Hemoglobin 25.6 pg (27.0-33.0) L Mean Corpuscular Hemoglobin Concent 31.2 g/dL (32.0-36.0) L Red Cell Distribution Width 15.7 % (11.0-15.5) H Platelet Count 262 K/uL (130-400) Mean Platelet Volume 9.0 fL (7.5-10.5) Immature Granulocyte % (Auto) 0.2 % (0-1) Neutrophils (%) (Auto) 67.2 % (40.0-77.0) Lymphocytes (%) (Auto) 20.0 % (21.0-51.0) L Monocytes (%) (Auto) 7.6 % (3.0-13.0) Eosinophils (%) (Auto) 4.1 % (0.0-8.0) Basophils (%) (Auto) 0.9 % (0.0-5.0) Neutrophils # (Auto) 3.7 K/uL (1.8-7.7) Lymphocytes # (Auto) 1.1 K/uL (1.0-4.8) Monocytes # (Auto) 0.4 K/uL (0.1-1.0) Eosinophils # (Auto) 0.23 K/uL (0.00-0.70) Basophils # (Auto) 0.05 K/uL (0.00-0.20) Absolute Immature Granulocyte (auto 0.01 K/uL (0-1) Nucleated Red Blood Cells 0.0 % (0.0-0.19) Prothrombin Time 11.4 SEC (9.6-11.6) Prothromb Time International Ratio 1.08 (0.85-1.15) Activated Partial Thromboplast Time 33.3 SEC (26.3-35.5) Sodium Level 142 mmol/L (136-145) Potassium Level 4.4 mmol/L (3.5-5.1) Chloride Level 106 mmol/L (101-111) Carbon Dioxide Level 28 mmol/L (21-32) Blood Urea Nitrogen 15 mg/dL (7-18) Creatinine 0.8 mg/dL (0.5-1.0) Glomerular Filtration Rate Calc 76 mL/min (>90) Random Glucose 93 mg/dL (70-105) Total Calcium 9.5 mg/dL (8.5-10.1) Total Creatine Kinase 37 U/L (21-232) Troponin I High Sensitivity 4.1 ng/L (4-50) B-Type Natriuretic Peptide 43 pg/mL (0-100) MDM CC: Left shoulder pain Historian: Patient Comorbidities: Advanced age Limitations by social determinants of health: None Differential diagnosis: Fracture Patient appears to be under medicated. Labs are stable. EKGs stable. Troponin stable. Low suspicion for any life threats. She received Toradol and [place] here in the ER Plan DC with [place] tabs meloxicam recommend orthopedic follow up. ED Course Orders Procedure Category Date Status Time Cardiac Panel LAB 11/20/24 Complete 11:43 Cbc With Differential LAB 11/20/24 Complete 11:43 Basic Metabolic Panel LAB 11/20/24 Complete 11:43 B-Type Natriuretic LAB 11/20/24 Complete Peptide 11:43 Prothrombin Time With LAB 11/20/24 Complete INR 11:43 Partial LAB 11/20/24 Complete Thromboplastin Time 11:43 12 Lead Ekg Tracing- EKG 11/20/24 Resulted Technical 11:43 Chest 1vw RAD 11/20/24 Resulted 11:43 Hydrocodone/Apap PHA 11/20/24 Complete 5/325 ([place] 5/325mg) 12:30 Ketorolac PHA 11/20/24 Complete Tromethamine 15mg/Ml 12:30 Hydrocodone/Apap PHA 11/20/24 Complete 5/325 ([place] 5/325mg) 16:00 Current Medications Medications (Trade) Dose Ordered Sig/Se Route PRN Reason Start Time Stop Time Status Last Admin Dose Admin Acetaminophen/ Hydrocodone Bitart (NORco 5/325MG) 1 tab ONCE ONCE PO 11/20/24 12:30 11/20/24 12:31 DC 11/20/24 14:32 Acetaminophen/ Hydrocodone Bitart (NORco 5/325MG) 1 tab ONCE ONCE PO 11/20/24 16:00 11/20/24 16:01 DC Ketorolac Tromethamine (toRADol) 15 mg ONCE ONCE IM 11/20/24 12:30 11/20/24 12:31 DC 11/20/24 14:36 Vital Signs Date Time Temp Pulse Resp B/P (MAP) Pulse Ox O2 Delivery O2 Flow Rate FiO2 11/20/24 15:55 98.1 64 16 104/44 99 Room Air* 0 21 11/20/24 15:14 97.9 63 13 134/61 99 Room Air* 0 21 11/20/24 12:15 97.5 96 20 138/94 99 Room Air 0 DX & DISP Disposition: Discharge Departure Impression: Primary Impression: Closed left humeral fracture Condition: Stable Scripts Hydrocodone/Acetaminophen (Hydrocodon-Acetaminophen 5-325) 5 Mg-325 Mg Tablet 1-2 TAB PO Q6HPRN PRN for pain for 10 Days, #40 TAB 0 Refills Prov: ITZ PARKER DO 11/21/24 Meloxicam (Meloxicam) 15 Mg Tablet 15 MG PO DAILY PRN for PAIN for 20 Days, #20 TAB Prov: ITZ PARKER DO 11/20/24 Referrals: CAROLINA THURMAN MD (PCP) ITZ PARKER DO November 20, 2024 11:45
[2024-11-20 12:09] LABS: BASOPHILS # (AUTO) 0.05 K/uL (0.00-0.20); BASOPHILS % (AUTO) 0.9 % (0.0-5.0); EOSINOPHILS # (AUTO) 0.23 K/uL (0.00-0.70); EOSINOPHILS % (AUTO) 4.1 % (0.0-8.0); HEMATOCRIT 36.2 % (36-48); IMMATURE GRANULOCYTE ABSOLUTE 0.01 K/uL (0-1); LYMPHOCYTES # (AUTO) 1.1 K/uL (1.0-4.8); MEAN CORPUSCULAR HEMOGLOBIN 25.6 pg (27.0-33.0); MEAN CORPUSCULAR HGB CONC 31.2 g/dL (32.0-36.0); MEAN CORPUSCULAR VOLUME 82.1 fL (79-99); MONOCYTES # (AUTO) 0.4 K/uL (0.1-1.0); MONOCYTES % (AUTO) 7.6 % (3.0-13.0); NEUTROPHILS # (AUTO) 3.7 K/uL (1.8-7.7); NEUTROPHILS % (AUTO) 67.2 % (40.0-77.0); PLATELET COUNT (AUTO) 262 K/uL (130-400); RED BLOOD CELL COUNT(AUTO) 4.41 MIL/uL (4.00-5.50); RED CELL DISTRIBUTION WIDTH 15.7 % (11.0-15.5); WHITE BLOOD COUNT (AUTO) 5.6 K/uL (4.8-10.8)
[2024-11-20 12:18] LABS: CREATININE 0.8 mg/dL (0.5-1.0); POTASSIUM 4.4 mmol/L (3.5-5.1)
[2024-11-20 12:19] LABS: INR 1.08 (0.85-1.15); PROTHROMBIN TIME 11.4 SEC (9.6-11.6)
[2024-11-20 12:21] LABS: PARTIAL THROMBOPLASTIN TIME 33.3 SEC (26.3-35.5)
[2024-11-20 12:32] LABS: B-TYPE NATRIURETIC PEPTIDE 43 pg/mL (0-100)
--- NOTE | 2024-11-20 12:34 | HMCIMG ---
Exam Type: CHEST 1VW Clinical Information: chest pain Comparison: None Findings: The lungs are clear of infiltrates. The heart is normal in size. The bony and soft tissue structures of the chest are unremarkable. Impression: Clear lungs.
--- NOTE | 2024-11-20 12:36 | EKG ---
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
[2024-11-20] MEDS: HYDROcodone/APAP 5/325 1 TAB TABLET PO ONE ×2 (14:32→16:04)
[2024-11-20] MEDS: ketOROlac 15MG/ML VIAL (15MG/ML) IM ONE (14:36)
[2024-11-20] MEDS ORDERED: HYDR-4060 PO ×3 (15:08→16:19)
[2024-11-20] MEDS ORDERED: MELO-108 PO (15:08)
[2024-11-20 15:55] VITALS: BP 104/44; PULSE 64; RESP 16; TEMP 98; O2SAT 99
--- NOTE | 2024-11-20 16:05 | NUR ---
DC PATIENT WAS DC'D BY DR. PARKER, I EXPLAINED TO PATIENT TO FOLLOW UP WITH PCP, EXPLAINED NEW PRESCRIPTIONS AND PROVIDED INFO BASED ON DIAGNOSIS ANSWERED ALL PATIENTS QUESTIONS, PATIENT AMBULATED OUT OF ED, NO COMPLICATIONS
[2024-11-21] MEDS ORDERED: HYDR-4060 PO (14:38)
== END 2024-11-20 15:57 | disposition home or self-care (01) ==
LOC: EDH 11:34
DX: S42.302A Unspecified fracture of shaft of humerus, left arm, initial encounter for closed fracture (principal); E11.9 Type 2 diabetes mellitus without complications; Z79.02 Long term (current) use of antithrombotics/antiplatelets; Z79.1 Long term (current) use of non-steroidal anti-inflammatories (NSAID); Z79.890 Hormone replacement therapy; Z79.899 Other long term (current) drug therapy; Z95.1 Presence of aortocoronary bypass graft; W18.39XA Other fall on same level, initial encounter; Y93.89 Activity, other specified; Y92.89 Other specified places as the place of occurrence of the external cause; Y99.8 Other external cause status
CPT/HCPCS: 99285; 71045; 82550; 84484; 80048; 83880; 85025; 85610; 85730; 36415; 96372; 93005; J1885

== ENCOUNTER 2025-02-06 06:15 | Day surgery (SDC) | payer OTHER ==
[2025-02-05 12:52] LABS: IMMATURE GRANULOCYTE ABSOLUTE 0.02 K/uL (0-1); NUCLEATED RED BLOOD CELLS 0.0 % (0.0-0.19); PLATELET COUNT (AUTO) 219 K/uL (130-400); RED BLOOD CELL COUNT(AUTO) 4.69 MIL/uL (4.00-5.50); RED CELL DISTRIBUTION WIDTH 14.1 % (11.0-15.5); WHITE BLOOD COUNT (AUTO) 4.9 K/uL (4.8-10.8)
--- NOTE | 2025-02-05 12:54 | EKG ---
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
[2025-02-05 13:02] VITALS: BP 124/68; PULSE 67; RESP 17; TEMP 97.5
[2025-02-05 13:05] LABS: CREATININE 1.0 mg/dL (0.5-1.0); GLOMERULAR FILTR. RATE CALC 58.0 mL/min (>90); GLUCOSE,RANDOM 90.0 mg/dL (70-105); INR 1.13 (0.85-1.15); SODIUM SERUM 141.0 mmol/L (136-145); UREA NITROGEN, BLOOD 20.0 mg/dL (7-18)
--- NOTE | 2025-02-05 15:28 | NUR ---
report reported to dr omar wahl pt took plavix 75mg last yesterday at 0730. ok to proceed if pt ok to proceed. according to md procedure is minimally invasive. pt ok to proceed.
--- NOTE | 2025-02-05 15:29 | NUR ---
REPORT REPORTED EKG TO DR LARA PREVIOUS EKG ALSO REVIEWED. WANTS LATEST CARDIOLOGY NOTE TO DETERMINE IF OK TO PROCEED. Addendum: 02/05/25 at 1625 by RADHA ESPINOZA RN RN f/u after dr lara reviewing cardiology note. ok to proceed. pt and poa notified. also notified
[2025-02-06] VITALS (19 sets, daily range): BP systolic 15–167; BP diastolic 63–97; PULSE 52–76; RESP 13–19; TEMP 97–97.9
[~2025-02-06] VITALS: Ht 162.6 cm; Wt 77.6 kg
[~2025-02-06 06:15] MED LIST changes: -CEFD300C3 PO; -CELE-125 PO; -OTEZLA PO
[2025-02-06] MEDS ORDERED: LIDOCAINE HCL-MPF 1% 5ML AMP IJ ONE (07:16)
[2025-02-06] MEDS: 0.9%NACL 1000ML 1,000 ML IV ONE (07:35)
[2025-02-06] MEDS ORDERED: GLYCOPYRROLATE 0.2 MG/ML 5 ML VIAL ONE (08:47)
[2025-02-06] MEDS ORDERED: NEOSTIGMINE METHYLSULFATE 1MG/ML IV ONE (08:48)
[2025-02-06] MEDS ORDERED: MIDAZOLAM HCL 1 MG/ML 2ML VIAL ONE (09:02)
[2025-02-06] MEDS ORDERED: SUGAMMADEX SODIUM 200 MG/2 ML VIAL IV ONE (09:19)
--- NOTE | 2025-02-06 09:29 | OP ---
Operative Note: DATE OF PROCEDURE: 02/06/25 Surgeon: April Bansal DPM Business Operations Specialist: Zoila Smart DPM Procedure: ORIF Right Fibula with Syndesmotic Repair Pre-op Diagnosis: Closed displaced fracture of lateral malleolus of right f ibula; Syndesmotic disruption of right ankle Post-op Diagnosis: Same Anesthesia: General with popliteal saphenous nerve block Hemostasis: Thigh Tourniquet set to 250mmHg for 61 minutes Estimated Blood Loss: <5 ccs Materials: 3-0 Nylon, 3-0 Monocryl, Posterior Splint Implants: [employer] 2.7/3.5 Fibula plate and screws (2.7 x 15 cortical(x2) 2.7 x 15 Locking (x2); 3.5 x 12 Locking and 3.5 x 16 cortical and 3.5 x 14 cortical(x2) Complications: None Disposition: Stable Indications for the procedure: Patient is a 79 yo female who presented to clinic for a ground level fall. She reports she had radiographs taken which showed concern for fracture. Stress xrays were taken in office which demonstrated medial gutter widening of 7.5mm. Discussion was had regarding managment, including risks, expectations, timelines and alternatives. After discussion and through mutual decision making the patient opted for operative management, I feel this is appropriate. Procedure in Detail: The patient was brought to the operating room and placed supine on the operative table. Time out was performed reconfirming the patient's identity, planned procedure and procedure site; all team members identified themselves and after adequate induction of anesthesia the right lower extremity was prepared and draped in the usual aseptic manner. The extremity was exsanguinated and the tourniquet inflated to the above pressure. Attention was then turned to the fibula where a 2 cm incision was placed overlying the distal fibula. The incision was deepened through subcutaneous tissue taking care to protect the intermediate dorsal cutaneous nerve anteriorly and sural nerve posteriorly. A cifuentes elevator was then used to create a epi-periosteal space overlying the distal fibula. The anatomic fibular plate was then inserted and used to template the fibula. The proximal plate was then palpated and a small incision was created overlying the proximal plate and temporary fixation placed. After confirmation of position, a distal cortical screw was placed in the plate and the plate used in conjunction with a Li clamp to aid in fracture reduction. C-arm was then used to check hardware placement and fracture reduction. After manipulation and confirmation of hardware placement and fracture reduction. A proximal cortical screw was placed to maintain fracture reduction, once performed and confirmation of preservation of correction was noted, the above 2.7 mm screws were inserted distally per AO technique ensuring no articular violation of the ankle occurred. The proximal 3.5 screws were then inserted bicortically after confirming maintenance of correction. A cotton test was then performed and no medial gutter widening was appreciated. Layered closure was then performed, the tourniquet was then released and appropriate reactive hyperemia appreciated. A sterile dressing was then applied and the patient was placed in a well padded posterior splint. Anesthesia was reversed and the patient was transported to the post anesthesia care unit with vital signs stable and vascular status intact. APRIL BANSAL DPM Feb 06, 2025 09:29
[2025-02-06] MEDS ORDERED: HYDR-4060 PO (09:48)
[2025-02-06] MEDS ORDERED: ONDA22I IM (09:48)
--- NOTE | 2025-02-06 10:30 | NUR ---
POST OP RECOVERY DRESSING TO RIGHT LEG. WRAPPED AND CAST IN PLACE. PATIENT WIGGLE'S TOES ON COMMAND. NO DISCOLORATION TO THE TOES NOR COLDNESS.
--- NOTE | 2025-02-07 16:50 | HMCIMG ---
TIBIA/FIBULA 2VWS RT REASON: ORIF RIGHT FIBULA, SX TECHNIQUE: 5 views were obtained. FINDINGS: ORIF of the right fibular with 5 C-arm images... Fluoroscopy time 1 minute 1 second. IMPRESSION: Details of the finding in the operative notes.
== END 2025-02-06 11:25 | disposition home or self-care (01) ==
LOC: DAH 06:15
PROVIDERS: ATTEND Student in an Organized Health Care Education/Training Program
DX: S82.61XA Displaced fracture of lateral malleolus of right fibula, initial encounter for closed fracture (principal); S93.431A Sprain of tibiofibular ligament of right ankle, initial encounter; X58.XXXA Exposure to other specified factors, initial encounter; Y93.89 Activity, other specified; Y92.89 Other specified places as the place of occurrence of the external cause; Y99.8 Other external cause status; I49.3 Ventricular premature depolarization; Z79.01 Long term (current) use of anticoagulants; Z79.899 Other long term (current) drug therapy; F32.A Depression, unspecified; E03.9 Hypothyroidism, unspecified; K21.9 Gastro-esophageal reflux disease without esophagitis; I25.10 Atherosclerotic heart disease of native coronary artery without angina pectoris; E66.9 Obesity, unspecified; Z68.32 Body mass index [BMI] 32.0-32.9, adult; Z98.890 Other specified postprocedural states; Z88.8 Allergy status to other drugs, medicaments and biological substances
CPT/HCPCS: 80048; 85025; 85610; 85730; 36415; 93005; 27792; 64447; 64450; 82948; 73590; A6260; C1713 ×7; A4663; A4606; J3010; J7030; J3490 ×4; J2250; J2704; J2710; J2795; J2371; J0690 ×2; A6223; A4649; A4215; A4222; A4221; A4216; A4223 ×2

== ENCOUNTER → 2025-04-24 | Outpatient (CLI) | payer OTHER ==
[~2025-04-24] MED LIST changes: -ACET-2247 PO; +HYDR-4060 PO; +ONDA22I IM
--- NOTE | 2025-04-25 10:10 | HMCIMG ---
DIGITAL BILATERAL SCREENING MAMMOGRAM Technique: The digital mammographic examination of both breasts in craniocaudal and mediolateral oblique views along with CAD was obtained. History: This is a 79 years year-old female 1, para0 Ab1. Patient has no family history of breast cancer. Patient has no complaint Reference:Prior mammogram from 04/23/2024, 04/20/2023 and 02/03/2022 are available for comparison.. Breast composition: Breast composition B: There are scattered areas of fibroglandular density. Finding: The digital mammographic examination of both breasts in craniocaudal and mediolateral oblique view along with CAD demonstrates both breasts mild to moderately heterogeneously nodular dense breasts. There is a surgical clips in the right breast upper-outer quadrant.. There is no evidence of any dendritic mass, cluster microcalcification or architectural distortion. The retromammary fat appears to be normal. IMPRESSION: Unchanged from prior mammography. NO RADIOGRAPHIC EVIDENCE OF MALIGNANT CHANGES. WE WOULD RECOMMEND ANNUAL FOLLOW UP WITH TOMOSYNTHESIS UNLESS OTHERWISE CLINICALLY INDICATED. I would recommend annual bilateral breast sonogram FINAL ASSESSMENT: ACR: BI-RAD- 2. Benign Finding. NOTE: IF A WORK-UP OF THIS PATIENT LEADS TO A BIOPSY, PLEASE FORWARD A COPY OF THE PATHOLOGY REPORT TO OUR OFFICE REQUIRED BY [employer] MARCH 27, 1994. A NEGATIVE MAMMOGRAM SHOULD NOT PRECLUDE BIOPSY OF A CLINICALLY PALPABLE SUSPICIOUS MASS, 10% OF BREAST CANCERS ARE MAMMOGRAPHICALLY OCCULT. THIS MAMMOGRAPHY FACILITY IS FULLY ACCREDITED BY THE FOOD AND DRUG [employer]MINISTRATION (FDA). THANK YOU FOR THIS REFERRAL.
== END | disposition home or self-care (01) ==
LOC: RAH 09:06
PROVIDERS: ATTEND Family Medicine
DX: Z12.31 Encounter for screening mammogram for malignant neoplasm of breast (principal); R92.323 Mammographic fibroglandular density, bilateral breasts; R92.333 Mammographic heterogeneous density, bilateral breasts
CPT/HCPCS: 77067